=== PATIENT | male | born 1985 | race African-American/Black ===

== ENCOUNTER 2019-01-04 17:26 | Emergency (ER) | payer MEDICARE ==
--- NOTE | 2019-01-04 17:36 | ED.ADGEN ---
Adult General Chief Complaint Chief Complaint ".. I am really anxious... I let my depression and anxiety meds run out... I need to get my meds refilled.. Zoloft.... " HPI HPI Patient is a 33 year old male who presents with above hx and complaints of anxiety and depression. Patient is concerned because he ran out of his Zoloft. And unable to get back in to schedule appointment with his doctor to get a refill. Patient denies any history of suicidal ideation. Patient denies any history of homicidal ideation. Patient has a long history of anxiety. There is some family history of diabetes. Patient denies any other med use or current health problems. Requesting refill of his Zoloft. Patient denies any illicit drug use. Review of Systems Review of Systems Constitutional: Denies fever or chills [] Eyes: Denies change in visual acuity, redness, or eye pain [] HENT: Denies nasal congestion or sore throat [] Respiratory: Denies cough or shortness of breath [] Cardiovascular: No additional information not addressed in HPI [] GI: Denies abdominal pain, nausea, vomiting, bloody stools or diarrhea [] : Denies dysuria or hematuria [] Musculoskeletal: Denies back pain or joint pain [] Integument: Denies rash or skin lesions [] Neurologic: Denies headache, focal weakness or sensory changes [] Endocrine: Denies polyuria or polydipsia [] All other systems were reviewed and found to be within normal limits, except as documented in this note. Family History Family History Diabetes and hypertension Current Medications Current Medications Current Medications Medications (Trade) Dose Ordered Sig/[facility] Start Time Stop Time Status Last Admin Dose Admin Lorazepam (Ativan) 1 mg 1X ONCE 01/04/19 18:00 01/04/19 18:01 DC 01/04/19 18:00 1 MG Allergies Allergies Allergies Coded Allergies Type Severity Reaction Last Updated Verified No Known Drug Allergies 01/04/19 No Physical Exam Physical Exam Constitutional: , no acute distress, non-toxic appearance. Is anxious that he ran out of his depression and anxiety meds HENT: Normocephalic, atraumatic, bilateral external ears normal, oropharynx moist, no oral exudates, nose normal. [] Eyes: PERRLA, EOMI, conjunctiva normal, no discharge. [] Neck: Normal range of motion, no tenderness, supple, no stridor. [] More than 17 inches circumference Cardiovascular:Heart rate regular rhythm, no murmur [] Lungs & Thorax: Bilateral breath sounds clear to auscultation [] Abdomen: Bowel sounds normal, soft, no tenderness, no masses, no pulsatile masses. Obese Skin: Warm, dry, no erythema, no rash. [] Back: No tenderness, no CVA tenderness. [] Extremities: No tenderness, no cyanosis, no clubbing, ROM intact, no edema. [] Neurologic: Alert and oriented X 3, normal motor function, normal sensory function, no focal deficits noted. [] Psychologic: Affect anxious, judgement normal, mood normal. [] Current Patient Data Vital Signs Vital Signs Date Time Temp Pulse Resp B/P (MAP) Pulse Ox O2 Delivery O2 Flow Rate FiO2 01/04/19 17:38 98.9 87 16 99 Room Air Lab Results Laboratory Tests Test 01/04/19 18:11 Glucose (Fingerstick) 122 mg/dL (70-99) H EKG EKG [] Radiology/Procedures Radiology/Procedures [] Course & Med Decision Making Course & Med Decision Making Pertinent Labs and Imaging studies reviewed. (See chart for details) Patient given a prescription for Zoloft. Patient to keep follow-up with his doctor. Patient return of any concerns. Note error in Rx - pt. on100 mg of Zoloft daily. [] Final Impression Final Impression 1. Anxiety 2. History depression 3.. Medicine refill- Zoloft[] Dragon Disclaimer Dragon Disclaimer This electronic medical record was generated, in whole or in part, using a voice recognition dictation system. Discharge Summary Visit Information Final Diagnosis Problems Medical Problems: (1) Anxiety Status: Acute Brief Hospital Course Allergies Allergies Coded Allergies Type Severity Reaction Last Updated Verified No Known Drug Allergies 01/04/19 No Vital Signs Vital Signs Date Time Temp Pulse Resp B/P (MAP) Pulse Ox O2 Delivery O2 Flow Rate FiO2 01/04/19 17:38 98.9 87 16 99 Room Air Lab Results Laboratory Tests Test 01/04/19 18:11 Glucose (Fingerstick) 122 mg/dL (70-99) Brief Hospital Course Mr. Heard is a 33 old male who presented with hx anxiety and depression. Request for refill of his Zoloft. Discharge Information Condition at Discharge: Improved, Stable Disposition/Orders: D/C to Home Dischare Medications Current Medications Lorazepam (Ativan) 1 mg 1X ONCE PO Last administered on 01/04/19at 18:00; Admin Dose 1 MG; Start 01/04/19 at 18:00; Stop 01/04/19 at 18:01; Status DC Active Scripts Active Zoloft (Sertraline Hcl) 25 Mg Tablet 10 Mg PO DAILY 30 Days Giulia Disclaimer This chart was dictated in whole or in part using Voice Recognition software in a busy, high-work load, and often noisy Emergency Department environment. It may contain unintended and wholly unrecognized errors or omissions. ESTHER HORNER MD Jan 04, 2019 17:36
[2019-01-04 17:38] VITALS: BP 166/108
[2019-01-04] MEDS ORDERED: SERT25TA PO (17:50)
[2019-01-04] MEDS ORDERED: LORazepam 1 MG TABLET PO ONE (18:00)
== END 2019-01-04 18:18 | disposition home or self-care (01) ==
LOC: ER 17:26
DX: F41.9 Anxiety disorder, unspecified (principal); F32.9 Major depressive disorder, single episode, unspecified; Z76.0 Encounter for issue of repeat prescription
CPT/HCPCS: 82947; 99283; 99284

== ENCOUNTER 2021-05-27 19:44 | Emergency (ER) | payer MEDICARE ==
[~2021-05-27] VITALS: Ht 170.2 cm; Wt 117.0 kg
[~2021-05-27 19:44] MED LIST: SERT25TA PO
[2021-05-27] MEDS ORDERED: CYCLOBENZAPRINE 10 MG TABLET. PO ONE (20:15)
[2021-05-27] MEDS ORDERED: predniSONE 20 MG TABLET PO ONE (20:15)
[2021-05-27] MEDS ORDERED: CYCL-331 PO (20:16)
[2021-05-27] MEDS ORDERED: PRED50TA PO (20:16)
--- NOTE | 2021-05-27 20:16 | PHYS DOC ---
Past History Past Medical History: Anxiety, Depression Past Surgical History: No Surgical History Alcohol Use: Rarely Drug Use: None General Adult EDM: Chief Complaint: LOWER BACK PAIN OR INJURY HPI: HPI: 35-year-old male presents with right-sided back pain. 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 Over the last couple days has had increased pain in the right lateral back muscles of the thoracic spine. He has taken muscle relaxers in the past which helped but does not have any anymore. He denies any falls or direct trauma. He does try to be careful with his mechanics while lifting. He denies any urinary symptoms. He has no other complaints this time. Review of Systems: Review of Systems: Constitutional: Denies fever or chills Eyes: Denies change in visual acuity HENT: Denies nasal congestion or sore throat Respiratory: Denies cough or shortness of breath Cardiovascular: Denies chest pain or edema GI: Denies abdominal pain, nausea, vomiting, bloody stools or diarrhea : Denies dysuria Musculoskeletal: Right thoracic back pain Integument: Denies rash Neurologic: Denies headache, focal weakness or sensory changes Endocrine: Denies polyuria or polydipsia Lymphatic: Denies swollen glands Psychiatric: Denies depression or anxiety Allergies: Allergies: Allergies Coded Allergies Type Severity Reaction Last Updated Verified No Known Drug Allergies 01/04/19 No Physical Exam: PE: Constitutional: Well developed, well nourished, morbidly obese, no acute distress, non-toxic appearance. [] HENT: Normocephalic, atraumatic, bilateral external ears normal, oropharynx moist, no oral exudates, nose normal. [] Eyes: PERRLA, EOMI, conjunctiva normal, no discharge. [] Neck: Normal range of motion, no tenderness, supple, no stridor. [] Cardiovascular: Heart rate regular rhythm, no murmur [] Lungs & Thorax: Bilateral breath sounds clear to auscultation [] Abdomen: Bowel sounds normal, soft, no tenderness, no masses, no pulsatile masses. [] Skin: Warm, dry, no erythema, no rash. [] Back: Tenderness and muscle spasm of the right thoracic paraspinal muscles. [] Extremities: No tenderness, no cyanosis, no clubbing, ROM intact, no edema. [] Neurologic: Alert and oriented X 3, normal motor function, normal sensory function, no focal deficits noted. [] Psychologic: Affect normal, judgement normal, mood normal. [] Current Patient Data: Vital Signs: Vital Signs Date Time Temp Pulse Resp B/P (MAP) Pulse Ox O2 Delivery O2 Flow Rate FiO2 05/27/21 19:44 99.0 94 18 158/101 (120) 99 Room Air EKG: EKG: [] Radiology/Procedures: Radiology/Procedures: [] Heart Score: C/O Chest Pain: N/A Risk Factors: Risk Factors: DM, Current or recent (<one month) smoker, HTN, HLP, family history of CAD, obesity. Risk Scores: Score 0 - 3: 2.5% MACE over next 6 weeks - Discharge Home Score 4 - 6: 20.3% MACE over next 6 weeks - Admit for Clinical Observation Score 7 - 10: 72.7% MACE over next 6 weeks - Early Invasive Strategies Course & Med Decision Making: Course & Med Decision Making Pertinent Labs and Imaging studies reviewed. (See chart for details) I will prescribe the patient a short course of prednisone and Flexeril for his back pain. We will give the first dose in the ED. The patient also has very high blood pressure. He had blood pressure that was elevated at his last ED visit. I have encouraged him strongly to seek a primary care physician and get on medication for his hypertension. Patient states verbal understanding. He is stable for discharge at this time. [] Giulia Disclaimer: Giulia Disclaimer: This electronic medical record was generated, in whole or in part, using a voice recognition dictation system. Departure Departure: Impression: Primary Impression: Strain of thoracic back region Additional Impression: Hypertension Qualified Codes: I10 - Essential (primary) hypertension Disposition: HOME / SELF CARE / HOMELESS Condition: STABLE Referrals: PCP,UNKNOWN (PCP) Patient Instructions: Hypertension, [id number], Thoracic Strain, [id number] Scripts Prednisone (PREDNISONE) 50 Mg Tablet 1 TAB PO DAILY for back pain for 4 Days, #4 TAB Prov: FALGUNI GARCÍA DO 05/27/21 Cyclobenzaprine Hcl (CYCLOBENZAPRINE HCL) 10 Mg Tablet 1 TAB PO TID PRN for MUSCLE SPASMS, #30 TAB Prov: FALGUNI GARCÍA DO 05/27/21 FALGUNI GARCÍA DO May 27, 2021 20:16
[2021-05-27 20:45] VITALS: BP 148/99
== END 2021-05-27 20:40 | disposition home or self-care (01) ==
LOC: ER 19:44
DX: S29.012A Strain of muscle and tendon of back wall of thorax, initial encounter (principal); I10 Essential (primary) hypertension; F41.9 Anxiety disorder, unspecified; F32.9 Major depressive disorder, single episode, unspecified; X50.9XXA Other and unspecified overexertion or strenuous movements or postures, initial encounter; Y93.89 Activity, other specified; Y92.89 Other specified places as the place of occurrence of the external cause; Y99.8 Other external cause status
CPT/HCPCS: 99283; J7512